=== PATIENT | male | born 1985 | race Caucasian/White ===

== ENCOUNTER 2019-02-14 14:14 | Emergency (ER) | payer OTHER ==
[2019-02-14 14:58] LABS: ALT (SGPT) 41 U/L (8-55); AST (SGOT) 23 U/L (5-34); Albumin 4.7 g/dL (3.5-5.0); Alkaline Phosphatase 69 U/L (40-150); Anion Gap 18 mmol/L (10-20); BUN (Urea Nitrogen) 22 mg/dL (8.9-20.6); Bilirubin, Total 0.8 mg/dL (0.2-1.2); CK (CPK) 159 U/L (30-200); Calc. Creatinine Clearance 0 mL/min (70-130); Calcium 9.7 mg/dL (7.8-10.44); Carbon Dioxide 23 mmol/L (22-29); Chloride 105 mmol/L (98-107); Estimated GFR-MDRD 64; Globulin 2.8 g/dL (2.4-3.5); Glucose 108 mg/dL (70-105); Potassium 4.5 mmol/L (3.5-5.1); Protein, Total 7.5 g/dL (6.0-8.3); Sodium 141 mmol/L (136-145)
[2019-02-14 14:59] LABS: Hemoglobin 16.7 g/dL (14.0-18.0); Mean Corpuscular Hemoglobin 27.9 pg (27.0-31.0); Mean Platelet Volume 7.6 fL (7.4-10.4); Platelet Count 188 thou/uL (130-400); RBC Distribution Width 11.6 % (11.5-14.5); Red Blood Cell (RBC) Count 5.99 mill/uL (4.70-6.10); White Blood Cell (WBC) Count 7.9 thou/uL (4.8-10.8)
[2019-02-14] MEDS ORDERED: Sodium Chloride 0.9% 2,000 ML ONE (15:01)
[2019-02-14 15:40] LABS: Band 7 % (5-11); Lymphocytes 3 % (21-51); MDiff Complete? YES; Monocytes 6 % (0-10); Neutrophil 84 % (42-75); Platelet Morphology Comment Appears Adequate; RBC Morphology Normal
[2019-02-14 15:43] LABS: Bilirubin Negative (Negative); Blood, Urine Trace (Negative); Clarity Clear (Clear); Glucose, Urine (Dipstick) Negative (Negative); Leukocyte Negative (Negative); Nitrite Negative (Negative); Protein, Urine (Dipstick) Trace mg/dL (Neg-Trace)
[2019-02-14 15:44] LABS: Bacteria/HPF None Seen HPF (None Seen); RBC/HPF 0-3 HPF (0-3); Squamous Epithelial 0-3 HPF (0-3); WBC/HPF None Seen HPF (0-3)
[2019-02-14] MEDS ORDERED: Famotidine/PF 20 mg/2ml Vial ONE (16:25)
[2019-02-14] MEDS ORDERED: Promethazine HCl 25 MG/ML VIAL ONE (16:30)
--- NOTE | 2019-02-14 17:06 | RAD ---
XR Abdomen 2 View/1 View Cxr History: Pain Comparison: None. Findings: Lungs are clear. No pneumothorax. No effusion. Cardiac silhouette and mediastinal contours are within normal limits. No acute osseous abnormality. No dilated loops of large or small bowel. No free air under the hemidiaphragms. No abnormal calcifications projecting over the renal shadows. 5 nonrib-bearing lumbar type vertebrae. Phleboliths along the left hemipelvis. Impression: Normal examination.
[2019-02-14] MEDS ORDERED: Bisacodyl 10 MG SUPP ONE (17:12)
== END 2019-02-14 19:38 | disposition home or self-care (01) ==
LOC: NAV ERS 14:14
DX: T67.5XXA Heat exhaustion, unspecified, initial encounter (principal); R10.9 Unspecified abdominal pain; F17.290 Nicotine dependence, other tobacco product, uncomplicated; X30.XXXA Exposure to excessive natural heat, initial encounter
CPT/HCPCS: 74022; 80053; 81003; 81015; 82550; 85025; 93005; 96361; 96374; 96375; J2550; J7050; S0028